=== PATIENT | male | born 1990 | race Caucasian/White ===

== ENCOUNTER 2016-12-21 17:29 | Emergency (ER) | payer OTHER ==
[~2016-12-21] VITALS: Ht 177.8 cm; Wt 91.0 kg
[~2016-12-21 17:29] MED LIST: LORA1TAB PO
[2016-12-21 17:36] VITALS: Ht 177.8 cm; Wt 91.0 kg
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
[2016-12-21] MEDS ORDERED: FLUORESCEIN STRIP RIGHT EYE ONE (20:00)
[2016-12-21] MEDS ORDERED: TETRACAINE 0.5% 4 ML OPH RIGHT EYE ONE (20:00)
--- NOTE | 2016-12-21 21:04 | RADRPT ---
PROCEDURE: XR Chest. CLINICAL INDICATION: Coughing up blood. TECHNIQUE: Single frontal view of the chest. COMPARISON: 11/10/2014. FINDINGS: The cardiomediastinal silhouette is within normal limits. The lungs are clear. No signs of pleural f luid or pneumothorax are seen. The osseous structures and soft tissues are unremarkable. IMPRESSION: No evidence for active cardiopulmonary disease. RPTAT: [facility] Physician Joaquin Date Time Electronically viewed and signed by Grisel Scott Physician on 12/21/2016 21:03 RS/
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
[2016-12-21 22:42] VITALS: BP 137/85; PULSE 81; RESP 20; TEMP 98
== END 2016-12-21 22:44 | disposition home or self-care (01) ==
LOC: FTE 17:29
DX: S06.0X0A Concussion without loss of consciousness, initial encounter (principal); S20.211A Contusion of right front wall of thorax, initial encounter; H43.13 Vitreous hemorrhage, bilateral; S00.11XA Contusion of right eyelid and periocular area, initial encounter; I10 Essential (primary) hypertension; F17.210 Nicotine dependence, cigarettes, uncomplicated; Y08.89XA Assault by other specified means, initial encounter
CPT/HCPCS: 71010; 76536; Z7502; Z7610